=== PATIENT | female | born 1980 | race Hispanic/Latino ===

== ENCOUNTER 2018-01-01 05:54 | Day surgery (SDC) | payer MEDICAID ==
[2018-01-01] MEDS ORDERED: WATER FOR IRRIG STERILE IR ONE (07:22)
[2018-01-01] MEDS ORDERED: HURRICAINE ONE 20% TOPICAL SPRAY MM ×2 (07:25→07:40)
--- NOTE | 2018-01-01 07:37 | Anesthesia Consultation ---
Anesthesia Consult and Med Hx Date of service: 01/01/18 - Airway Anesthetic Teeth Evaluation: Good ROM Head & Neck: Adequate Mental/Hyoid Distance: Adequate Mallampati Class: Class III Intubation Access Assessment: Possibly Difficult - Pre-Operative Health Status ASA Pre-Surgery Classification: ASA3 Proposed Anesthetic Plan: MAC - Pulmonary Hx Sleep Apnea: No - Central Nervous System Hx Back Pain: Yes Hx Psychiatric Problems: No - Other Systems Hx Alcohol Use: No Hx Substance Use: No Hx Cancer: No Hx Obesity: Yes (BMI 49.9)
--- NOTE | 2018-01-01 07:37 | Anesthesia Day of Surgery ---
Anesthesia Day of Surgery - Day of Surgery Patient Examined: Yes Patient H&P Reviewed: Yes Patient is NPO: Yes
[2018-01-01] MEDS ORDERED: VERSED ONE (07:39)
[2018-01-01] MEDS ORDERED: XYLOCAINE 2% INFILTRATI ONE (07:39)
[2018-01-01] MEDS ORDERED: DIPRIVAN 10 MG/ML IV ONE (07:39)
--- NOTE | 2018-01-01 07:53 | Operative Report ---
Operative Report Operative Report: OPERATIVE REPORT - EGD DATE 01/01/18 SURGERY: Upper endoscopy. SURGEON: Trang Lal M.D. PRE OP DX: dyspepsia POST OP DX: hiatal hernai TYPE OF ANESTHESIA: MAC. ESTIMATED BLOOD LOSS: None. COMPLICATIONS: None. SPECIMENS REMOVED: None. FINDINGS: 1. hiatal hernia. 2. Otherwise, normal esophagus, stomach and first portion of duodenum. INDICATIONS:INDICATION FOR PROCEDURE: Patient is a 37-year-old female with a long history of morbid obesity. She is planned to have a weight loss procedure and is here for preoperative planning EGD. PROCEDURE DETAILS: After consent was reviewed, patient was taken back to the operating room where patient was placed in the left lateral decubitus position and a bite block was placed in the mouth. After a time-out was called, MAC anesthesia was initiated. I then passed the endoscope into her oropharynx, into her esophagus, visualized the entire esophagus, which was all within normal limits. I then visualized the stomach and the first portion of the duodenum and there were no abnormalities I could clearly visualize. I then retroflexed the scope in the stomach and visualized the hiatus and I could see a hiatal hernia. I then desufflated the stomach and removed the endoscope. Patient tolerated procedure well and was transferred to recovery room in good and stable condition.
--- NOTE | 2018-01-01 07:56 | Discharge Summary ---
Providers - Providers Date of discharge: 01/01/18 Attending physician: ARACELIS PAGE Primary care physician: JANNETH SHEPPARD Hospitalization Condition: Good Procedures: egd Hospital course: pt had an uneventful egd as part of pre-operative planning for upcoming bariatric surgery Disposition: DC-01 TO HOME OR SELFCARE Core Measure Documentation - Palliative Care Palliative Care/ Comfort Measures: Not Applicable - Core Measures Any of the following diagnoses?: none Exam - Physical Exam Narrative exam: unchanged from pre-op - Constitutional Vitals: Temp Pulse Resp BP Pulse Ox 97.6 F 69 13 144/78 98 01/01/18 07:30 01/01/18 07:30 01/01/18 07:30 01/01/18 07:30 01/01/18 07:30 Plan Activity: no restrictions Weight Bearing Status: Weight Bear as Tolerated Diet: regular Follow up with: JANNETH SHEPPARD MD [Primary Care Provider] - 7 Days
[2018-01-01] MEDS ORDERED: NACL 0.9% 1000 ML 1,000 ML IV SCH (08:00)
--- NOTE | 2018-01-01 09:02 | Post Anesthesia Evaluation ---
- Post Anesthesia Evaluation Patient Participated: Yes Airway Patent: Yes Stable Respiratory Function: Yes Nausea/Vomiting: No Temp > 96.8F: Yes Pain Manageable: Yes Adequeate Hydration: Yes Anesthesia Complications: No Block Receding Appropriately: Not Applicable (stable)
[2018-01-01 09:31] VITALS: BP 126/78
== END 2018-01-01 05:55 | disposition home or self-care (01) ==
LOC: GIO 05:54
PROVIDERS: ATTEND Surgery
DX: K44.9 Diaphragmatic hernia without obstruction or gangrene (principal); E66.01 Morbid (severe) obesity due to excess calories; Z68.42 Body mass index [BMI] 45.0-49.9, adult
CPT/HCPCS: 43235; 81025; J2250; J2704; J7030